=== PATIENT | born 2000 ===

== ENCOUNTER 2021-12-17 22:08 | Outpatient (REF) | payer SELFPAY ==
[2021-12-17 22:28] LABS: HCT 48.5 %; HGB 15.6 g/dL; MCH 28.1 pg; MCHC 32.2 %; MCV 87 fL; MPV 10.9 fL; Platelet Count 260 10^3/uL; RBC 5.55 10^6/uL; RDW 12.6 %; RDW-SD 40.4 fL; WBC 7.03 10^3/uL
[2021-12-17 22:52] LABS: TSH 0.79 uIU/mL
[2021-12-19 14:30] LABS: Chlamydia Result Negative (Negative); GC Result Negative (Negative)
== END 2021-12-17 22:09 | disposition home or self-care (01) ==
LOC: NCHCN 22:08
PROVIDERS: Visit Provider Family Medicine
DX: R53.83 Other fatigue (principal); Z00.00 Encounter for general adult medical examination without abnormal findings; Z11.3 Encounter for screening for infections with a predominantly sexual mode of transmission
CPT/HCPCS: 85027; 87491; 87591; 84443